=== PATIENT | female | born 1950 | race Two or more races ===

== ENCOUNTER 2017-10-19 09:38 | Emergency (ER) | payer SELFPAY ==
[~2017-10-19] VITALS: Ht 165.1 cm; Wt 67.3 kg
[2017-10-19] MEDS ORDERED: ASPI-1160 PO (10:44)
[2017-10-19] MEDS ORDERED: LISI-604 PO (10:44)
[2017-10-19] MEDS ORDERED: ATOR40TA70 PO (10:44)
[2017-10-19] MEDS ORDERED: METO-385 PO (10:44)
[2017-10-19] MEDS ORDERED: METF500T4 PO (10:44)
[2017-10-19] MEDS ORDERED: KETOROLAC 30MG/ML VIAL IV STA (10:57)
[2017-10-19] MEDS ORDERED: ONDANSETRON HCL 4MG/2ML VIAL IV STA (10:57)
[2017-10-19] MEDS ORDERED: FAMOTIDINE 20MG/2ML VIAL IV STA (10:57)
[2017-10-19] MEDS ORDERED: SODIUM CHLORIDE 0.9% 1,000 ML IV ONE (10:57)
[2017-10-19 11:36] LABS: CHLORIDE 104 mEq/L (98-107)
[2017-10-19 11:38] LABS: PARTIAL THROMBOPLASTIN TIME 26.2 sec (23.4-31.0); PROTHROMBIN TIME 10.7 sec (9.4-11.6)
[2017-10-19 11:45] LABS: BASOPHILS % 1.1 % (0.0-2.0); EOSINOPHILS % 3.2 % (0.0-5.0); HEMATOCRIT. 45.2 % (36.0-48.0); HEMOGLOBIN. 15.2 g/dL (12.0-16.0); LYMPHOCYTES % 21.5 % (20.0-50.0); MEAN CORPUSCULAR HEMOGLOBIN 30.5 pg (28.0-32.0); MEAN CORPUSCULAR VOLUME 90.9 fL (81.0-99.0); MEAN PLATELET VOLUME 8.8 fl (7.4-10.4); MONOCYTES % 7.5 % (2.0-8.0); NEUTROPHILS % 66.7 % (40.0-76.0); PLATELET 347 x1000/uL (130-400); RED BLOOD CELL COUNT 4.97 mill/uL (4.2-5.4); RED CELL DISTRIBUTION WIDTH 14.3 % (11.6-14.6)
[2017-10-19 13:13] VITALS: BP 108/67
[2017-10-19 13:27] LABS: CLARITY URINE CLEAR (CLEAR); COLOR URINE YELLOW (YELLOW); KETONES URINE NEGATIVE (NEGATIVE); LEUKOCYTE ESTERASE URINE TRACE (NEGATIVE); NITRITE URINE NEGATIVE (NEGATIVE); OCCULT BLOOD URINE NEGATIVE (NEGATIVE); PH URINE 6.5 (4.5-8.0); PROTEIN URINE NEGATIVE (NEGATIVE); SPECIFIC GRAVITY URINE 1.007 (1.005-1.030); UROBILINOGEN URINE 0.2 E.U./dL (0.2-1.0)
== END 2017-10-19 14:20 | disposition home or self-care (01) ==
LOC: ER 10:11
DX: R10.13 Epigastric pain (principal); N28.1 Cyst of kidney, acquired; R94.5 Abnormal results of liver function studies; I10 Essential (primary) hypertension; E78.00 Pure hypercholesterolemia, unspecified; E11.9 Type 2 diabetes mellitus without complications; Z79.82 Long term (current) use of aspirin
CPT/HCPCS: 36415; 71045; 74176; 76705; 80053; 81001; 83690; 85025; 85610; 85730; 86850; 86900; 86901; 93005; 96361; 96374; 96375; 99285; J1885; J2405; J3490; J7030; Z7610

== ENCOUNTER 2017-12-31 23:34 | Inpatient (IN) | payer SELFPAY ==
[~2017-12-31] VITALS: Ht 149.9 cm; Wt 64.0 kg
[~2017-12-31 23:34] MED LIST: ASPI-1160 PO; ATOR40TA70 PO; LISI-604 PO; METF500T4 PO; METO-385 PO
[2018-01-01 01:04] LABS: BASOPHILS % 1.1 % (0.0-2.0); EOSINOPHILS % 3.2 % (0.0-5.0); HEMATOCRIT. 40.9 % (36.0-48.0); HEMOGLOBIN. 14.4 g/dL (12.0-16.0); LYMPHOCYTES % 24.2 % (20.0-50.0); MEAN CORPUSCULAR HEMOGLOBIN 31.9 pg (28.0-32.0); MEAN CORPUSCULAR VOLUME 90.2 fL (81.0-99.0); MEAN PLATELET VOLUME 7.8 fl (7.4-10.4); MONOCYTES % 5.9 % (2.0-8.0); NEUTROPHILS % 65.6 % (40.0-76.0); PLATELET 339 x1000/uL (130-400); RED BLOOD CELL COUNT 4.53 mill/uL (4.2-5.4); RED CELL DISTRIBUTION WIDTH 13.8 % (11.6-14.6)
[2018-01-01 01:11] LABS: PROTHROMBIN TIME 10.4 sec (9.4-11.6)
[2018-01-01 01:12] LABS: CHLORIDE 105 mEq/L (98-107)
[2018-01-01] MEDS ORDERED: ASPIRIN 81MG TABLET PO ONE (01:15)
[2018-01-01] MEDS ORDERED: NITROGLYCERIN OINT 1GM/INCH UDPKT TD ONE (01:15)
[2018-01-01 01:49] LABS: ETHANOL BLOOD < 10 mg/dL
[2018-01-01] MEDS ORDERED: AMOX500T2 PO (07:40)
[2018-01-01] MEDS ORDERED: CLAR250T PO (07:40)
[2018-01-01 07:50] VITALS: BP 144/79
[2018-01-01 07:59] VITALS: BP 144/79
[2018-01-01] MEDS ORDERED: AMLO10TA80 PO (08:25)
[2018-01-01] MEDS ORDERED: DIPHENHYDRAMINE 50MG/ML VIAL IV PRN (09:15)
[2018-01-01] MEDS ORDERED: ONDANSETRON HCL 4MG/2ML VIAL IV PRN (09:15)
[2018-01-01] MEDS ORDERED: DEXTROSE 50% WATER 50ML SYRINGE IV PRN (09:15)
[2018-01-01] MEDS ORDERED: ACETAMINOPHEN 325MG TABLET PO PRN (09:15)
[2018-01-01] MEDS ORDERED: CLONIDINE 0.1MG TABLET PO PRN (09:15)
[2018-01-01] MEDS ORDERED: MAGNESIUM/ALUMINUM HYDROXIDE/SIMETHICONE 30ML UDC PO PRN (09:15)
[2018-01-01] MEDS: METOPROLOL TARTRATE 50MG TABLET PO SCH ×2 (10:42→21:35)
[2018-01-01] MEDS: LISINOPRIL 10MG TABLET PO SCH ×2 (10:42→21:34)
[2018-01-01] MEDS: OMEPRAZOLE 20MG CAPSULE EXTENDED RELEASE PO SCH ×2 (10:43→21:35)
[2018-01-01] MEDS: ENOXAPARIN 40MG/0.4ML SYR SUBCUT SCH (10:44)
[2018-01-01 12:15] VITALS: BP 132/79
[2018-01-01] MEDS: BLOOD SUGAR DIAGNOSTIC STRIP TEST SCH ×3 (12:20→21:28)
[2018-01-01] MEDS: INSULIN LISPRO 100 UNITS/ML SUBCUT SCH ×3 (12:50→21:00)
[2018-01-01 15:42] LABS: CLARITY URINE CLEAR (CLEAR); COLOR URINE YELLOW (YELLOW); KETONES URINE NEGATIVE (NEGATIVE); LEUKOCYTE ESTERASE URINE TRACE (NEGATIVE); NITRITE URINE NEGATIVE (NEGATIVE); OCCULT BLOOD URINE NEGATIVE (NEGATIVE); PROTEIN URINE NEGATIVE (NEGATIVE); SPECIFIC GRAVITY URINE 1.008 (1.005-1.030); UROBILINOGEN URINE 0.2 E.U./dL (0.2-1.0)
[2018-01-01 15:57] LABS: *AMPHETAMINES SCREEN URINE NEGATIVE (NEGATIVE); *BARBITURATES SCREEN URINE NEGATIVE (NEGATIVE); *BENZODIAZEPINES SCREEN URINE NEGATIVE (NEGATIVE); *COCAINE SCREEN URINE NEGATIVE (NEGATIVE)
[2018-01-01 15:58] LABS: CANNABINOID URINE SCREEN NEGATIVE (NEGATIVE); METHADONE URINE SCREEN NEGATIVE (NEGATIVE); OPIATES URINE SCREEN NEGATIVE (NEGATIVE); PHENCYCLIDINE URINE SCREEN NEGATIVE (NEGATIVE)
[2018-01-01 16:03] VITALS: BP 116/59
[2018-01-01] MEDS: SODIUM CHLORIDE 0.9% INJ 3ML FLUSH IVF SCH ×2 (16:39→21:35)
[2018-01-01] MEDS ORDERED: METFORMIN HCL 500MG SR TABLET 24HR PO SCH (17:00)
[2018-01-01] MEDS: METFORMIN HCL 500MG TABLET PO SCH (18:38)
[2018-01-01 20:00] VITALS: BP 134/73
[2018-01-01] MEDS ORDERED: ATORVASTATIN CALCIUM 40MG TABLET PO SCH (21:00)
[2018-01-02] VITALS: BP 108/54
[2018-01-02 04:00] VITALS: BP_SYST 106; BP_SYST 108; BP_DIAS 54; BP_DIAS 56
[2018-01-02] MEDS: SODIUM CHLORIDE 0.9% INJ 3ML FLUSH IVF SCH ×3 (06:42→20:56)
[2018-01-02] MEDS: OMEPRAZOLE 20MG CAPSULE EXTENDED RELEASE PO SCH ×2 (06:42→20:56)
[2018-01-02] MEDS: BLOOD SUGAR DIAGNOSTIC STRIP TEST SCH ×4 (06:47→20:56)
[2018-01-02] MEDS: INSULIN LISPRO 100 UNITS/ML SUBCUT SCH ×4 (06:48→20:56)
[2018-01-02 07:24] VITALS: BP 125/68
[2018-01-02] MEDS: LISINOPRIL 10MG TABLET PO SCH ×2 (08:36→20:56)
[2018-01-02] MEDS: ASPIRIN 81MG EC TABLET PO SCH (08:36)
[2018-01-02] MEDS: METOPROLOL TARTRATE 50MG TABLET PO SCH ×2 (08:36→20:56)
[2018-01-02] MEDS: ENOXAPARIN 40MG/0.4ML SYR SUBCUT SCH (08:37)
[2018-01-02] MEDS ORDERED: REGADENOSON 0.4 MG/5 ML IV ONE (11:30)
[2018-01-02 11:34] VITALS: BP 103/59
[2018-01-02 16:27] VITALS: BP 125/68
[2018-01-02] MEDS: METFORMIN HCL 500MG TABLET PO SCH (18:33)
[2018-01-02 20:13] VITALS: BP 136/66
[2018-01-03] VITALS: BP 106/71
[2018-01-03 04:00] VITALS: BP 112/64
[2018-01-03] MEDS: OMEPRAZOLE 20MG CAPSULE EXTENDED RELEASE PO SCH (06:05)
[2018-01-03] MEDS: SODIUM CHLORIDE 0.9% INJ 3ML FLUSH IVF SCH (06:05)
[2018-01-03] MEDS: BLOOD SUGAR DIAGNOSTIC STRIP TEST SCH ×2 (06:42→13:00)
[2018-01-03 07:24] VITALS: BP 128/62
[2018-01-03 07:28] LABS: CHLORIDE 106 mEq/L (98-107)
[2018-01-03 07:36] LABS: BASOPHILS % 0.8 % (0.0-2.0); EOSINOPHILS % 4.4 % (0.0-5.0); HEMATOCRIT. 40.3 % (36.0-48.0); HEMOGLOBIN. 13.8 g/dL (12.0-16.0); LYMPHOCYTES % 29.9 % (20.0-50.0); MEAN CORPUSCULAR HEMOGLOBIN 31.5 pg (28.0-32.0); MEAN CORPUSCULAR VOLUME 92.3 fL (81.0-99.0); MEAN PLATELET VOLUME 8.2 fl (7.4-10.4); MONOCYTES % 5.8 % (2.0-8.0); NEUTROPHILS % 59.1 % (40.0-76.0); PLATELET 320 x1000/uL (130-400); RED BLOOD CELL COUNT 4.37 mill/uL (4.2-5.4); RED CELL DISTRIBUTION WIDTH 13.8 % (11.6-14.6)
[2018-01-03] MEDS: INSULIN LISPRO 100 UNITS/ML SUBCUT SCH ×2 (07:42→12:50)
[2018-01-03] MEDS: METOPROLOL TARTRATE 50MG TABLET PO SCH (07:44)
[2018-01-03] MEDS: ASPIRIN 81MG EC TABLET PO SCH (07:44)
[2018-01-03] MEDS: ENOXAPARIN 40MG/0.4ML SYR SUBCUT SCH (07:45)
[2018-01-03] MEDS: LISINOPRIL 10MG TABLET PO SCH (07:45)
[2018-01-03] MEDS ORDERED: REGADENOSON 0.4 MG/5 ML IV ONE (09:27)
[2018-01-03 12:00] VITALS: BP 117/57
[2018-01-04] MEDS ORDERED: FAMOTIDINE 20MG TABLET PO SCH (09:00)
== END 2018-01-03 14:00 | disposition left against medical advice (07) | DRG 203 ==
LOC: ER 01-01 00:18 → 6WST 01-01 04:44 → ENRESERV 01-01 04:55 → EDBEDREQ 01-01 05:03
PROVIDERS: ADMIT Internal Medicine; ATTEND Internal Medicine
DX: R07.89 Other chest pain (principal); I27.20 Pulmonary hypertension, unspecified; I10 Essential (primary) hypertension; E11.9 Type 2 diabetes mellitus without complications; E78.00 Pure hypercholesterolemia, unspecified; Z53.21 Procedure and treatment not carried out due to patient leaving prior to being seen by health care provider; E78.5 Hyperlipidemia, unspecified; Z82.49 Family history of ischemic heart disease and other diseases of the circulatory system; Z83.3 Family history of diabetes mellitus; Z79.84 Long term (current) use of oral hypoglycemic drugs; Z79.899 Other long term (current) drug therapy; Z79.82 Long term (current) use of aspirin
CPT/HCPCS: 36415; 71045; 78452; 80048; 80053; 80305; 81003; 82962; 83036; 83690; 83880; 84484; 85025; 85610; 93005; 93017; 93306; 93970; A9500; G0482; J1650; J2785